=== PATIENT | female | born 1955 | race Caucasian/White ===

== ENCOUNTER 2016-08-31 09:25 | Day surgery (SDC) | payer OTHER ==
[~2016-08-31] VITALS: Ht 172.7 cm; Wt 88.5 kg
[~2016-08-31 09:25] MED LIST: 0.9% Sodium Chloride 1,000 ML IV SCH; FLUO40CA PO; HYDR12.5 PO; LOSA50TA37 PO; PYRI180T PO; QUE9 PO; SIMV20TA4 PO; Sodium Chloride LOK Flush 10 mL Syringe IV PRN; fentaNYL-PF 50 mCg/mL 2 mL Inj IVPUSH PRN
[2016-08-31] MEDS ORDERED: PROP60CA8 PO (09:51)
[2016-08-31 09:54] VITALS: BP 153/85; PULSE 74; RESP 14; O2SAT 94
[2016-08-31] MEDS: 0.9% Sodium Chloride 1,000 ML IV SCH ×3 (10:12→10:36)
--- NOTE | 2016-08-31 10:55 | PCM.ENDCOL ---
Colonoscopy Date of Service: August 31, 2016 Physician Chetan Perez MD Pre Procedure Diagnosis: Diarrhea Post Procedure Dx & Findings: Polyp hemorrhoid diverticuli Procedure Colonoscopy PROCEDURE IN DETAIL: Prep fair Withdrawal time 24 minutes After unremarkable rectal examination the Olympus video colonoscope was inserted patient's anal canal and was advanced to cecum. Landmarks were identified including the ileocecal valve and appendiceal orifice. Terminal ileum was visualized. Advanced about 5 cm. Visualized TI showed normal villous structures without ulcer or mass erosions. Scope was withdrawn systematically. Visualized colonic mucosa showed healthy shiny mucosa with normal healthy-appearing vasculature. Patient had diverticuli from the sigmoid all the way into the ascending colon. Multiple diverticuli noted throughout. In the ascending colon, there was a 2 mm polyp which was removed completely using cold snare. In the transverse colon , there was a 1 cm polyp which was removed completely using hot snare. One clip deployed. In the rectum retroflexion was done which showed hemorrhoids. Anal canal was inspected carefully on the way out and hemorrhoids noted. Impression Polyp 2 status post complete removal Diverticuli Hemorrhoids Recommendation Repeat colonoscopy in 1 year with a 2 day prep Diverticular diet Presedation Assessment Risks and Benefits Informed consent was obtained from the patient after all risks and benefits including but not limited to drug reaction, infection, pain, bleeding, perforation, as well as alternatives were discussed. Patient monitoring Continuous pulse oximetry, cardiac monitoring, blood pressure monitoring, IV access, and oxygen at 2L per nasal cannula. Periprocedural Fentanyl: Fentanyl 100mcg Incrementally Midazolam: Midazolam 5mg Incrementally Complications There were no periprocedural complications identified. Post Procedure Plan Post Procedure Recommendations 1. Restrict activities today. 2. Resume normal activities in the morning. 3. Resume medications. 4. Patient informed of normal post procedure side effects as bloating, drowsiness, blood streaking in the stool. 5. average risk CRCS. If colon polyps come back as: -Hyperplastic- can repeat colonoscopy in 10 years -Tubular adenoma- repeat colonoscopy in 5 years -Tubulovillous/villous adenoma- repeat colonoscopy in 3 years -If any dysplasia- return to clinic as soon as possible 6. Please don't hesitate to call me with any questions. Chetan Perez MD August 31, 2016 10:55
[2016-08-31 10:57] VITALS: BP 142/95; PULSE 78; RESP 16; O2SAT 95
[2016-08-31 11:07] VITALS: BP 151/77; PULSE 79; RESP 16; O2SAT 96
--- NOTE | 2016-09-01 10:14 | PATH ---
SURGICAL PATHOLOGY Attending Physician:Chetan Perez M.D. CASE STATUS: Signed Out PATIENT NAME: SHONNA BALDERAS PID: [id number] : 1955 DATE COLLECTED:08/31/2016 17:20 SPECIMEN: 1: Colon, Biopsy 2: Colon, Biopsy CLINICAL HISTORY: HX POLYPS,DIARRHEA,COLON POLYPS 1). RANDOM COLON BIOPSY 2). TRANSVERSE COLON POLYPS FINAL DIAGNOSIS: 1.RANDOM COLON BIOPSIES: FRAGMENTS OF NORMAL-APPEARING COLON MUCOSA. Negative for significant architectural distortion. Negative for significant inflammation, dysplasia and malignancy. 2.TRANSVERSE COLON POLYPS: TUBULAR ADENOMA INVOLVING MULTIPLE BIOPSY FRAGMENTS. 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 ICD10 CODE D12.3 GROSS DESCRIPTION: The specimen is received in two formalin filled containers labeled with the patient's name. 1). The specimen is sublabeled "random colon" and consists of multiple portions of tissue which aggregate to 0.6 x 0.5 x 0.2 CM. The specimen is entirely submitted in cassette 1A. 2). The specimen is sublabeled "transverse colon polyps" and consists of multiple portions of tissue which aggregate to 0.7 x 0.7 x 0.5 CM. The specimen is entirely submitted in cassette 2A. 08/31/2016 [facility] MICRO DESCRIPTION: See diagnosis. ICD-9 CODES: CPT CODES: 1: 34840 2: 34485 Electronically Signed Out Aleksandr Choudhary MD [facility] Pathology [facility] [address] [place] [address] Technical component performed at [facility], [address] [place] [address] [address], [address]
== END 2016-08-31 23:59 | disposition home or self-care (01) ==
LOC: END 09:25
PROVIDERS: ATTEND Internal Medicine
DX: R19.7 Diarrhea, unspecified (principal); G70.00 Myasthenia gravis without (acute) exacerbation; K64.9 Unspecified hemorrhoids; K57.30 Diverticulosis of large intestine without perforation or abscess without bleeding; D12.3 Benign neoplasm of transverse colon
CPT/HCPCS: 45380; 45385; 99153; G0500; J7030